=== PATIENT | female | born 1970 | race African-American/Black ===

== ENCOUNTER 2021-03-24 13:27 | Emergency (ER) | payer OTHER ==
[~2021-03-24] VITALS: Ht 162.6 cm; Wt 97.5 kg
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
[2021-03-24] MEDS ORDERED: IBUPROFEN 800800 M1 PO (15:37)
[2021-03-24] MEDS ORDERED: FLEXERIL PO (15:37)
[2021-03-24 16:00] VITALS: BP 128/90
== END 2021-03-24 15:41 | disposition home or self-care (01) ==
LOC: ER 13:27
DX: S16.1XXA Strain of muscle, fascia and tendon at neck level, initial encounter (principal); M62.830 Muscle spasm of back; Z88.6 Allergy status to analgesic agent; V49.09XA Driver injured in collision with other motor vehicles in nontraffic accident, initial encounter; Y93.89 Activity, other specified; Y92.89 Other specified places as the place of occurrence of the external cause; Y99.8 Other external cause status